=== PATIENT | male | born 1980 | race Native Hawaiian/Other Pacific Islander ===

== ENCOUNTER 2022-03-05 14:55 | Emergency (ER) | payer OTHER ==
[~2022-03-05] VITALS: Ht 175.3 cm; Wt 73.9 kg
[2022-03-05 15:30] VITALS: TEMP 98.3
[2022-03-05 16:55] VITALS: BP 120/82
== END 2022-03-05 16:56 | disposition home or self-care (01) ==
LOC: ED 14:55
DX: K02.9 Dental caries, unspecified (principal); M27.3 Alveolitis of jaws
CPT/HCPCS: 96365; 96372; 99284; J1885